=== PATIENT | female | born 2000 | race Caucasian/White ===

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

== ENCOUNTER 2018-06-04 13:35 | Emergency (ER) | payer MEDICAID ==
--- NOTE | 2018-06-04 14:30 | ED Physician Chart ---
ED Chief Complaint/HPI - Patient Information Date Seen:: 06/04/18 Time Seen:: 14:10 Chief Complaint:: trauma right thumb History of Present Illness:: Yesterday patient slammed her right thumb in a car door. Patient is right-hand dominant Allergies:: Allergies Allergy/AdvReac Type Severity Reaction Status Date / Time No Known Allergies Allergy Verified 07/26/16 19:00 Vitals:: Vital Signs - 8 hr 06/04/18 14:08 Temp 99.5 F HR 65 RR 18 BP 124/72 O2 Sat % 97 Historian:: Patient Review:: Nurse's Note Reviewed ED Review of Systems - Review of Systems General/Constitutional: No fever, No chills Skin: No rash Head: No headache Eyes: No loss of vision ENT: No earache Neck: No neck pain, No swelling Cardio Vascular: No chest pain, No palpitations Pulmonary: No SOB GI: No nausea, No vomiting, No diarrhea G/U: No dysuria Director Of Plant Operations: Other Musculoskeletal: No bone or joint pain, Other (see history and physical) Endocrine: No polyuria, No polydipsia Psychiatric: No prior psych history Hematopoietic: No bruising Allergic/Immuno: No urticaria Neurological: No syncope ED Past Medical History - Past Medical History Past Medical History: No significant medical hx Family History: None Social History: Non Smoker, Alcohol Surgical History: None Psychiatricy History: None Family Medical History - Family Member Father History Unknown: Yes Age: 55 Ethnicity: Living Status: Still Living Other Medical History: Healthy. ED Physical Exam - Physical Examination General/Constitutional: Awake, Well-developed, well-nourished Head: Atraumatic Eyes: Lids, conjuctiva normal Skin: Nl inspection ENMT: External ears, nose nl Neck: No nuchal rigidity Respiratory: Nl effort/Exclusion, Clear to Auscultation Cardio Vascular: RRR, No murmur, gallop, rubs GI: No tenderness/rebounding/guarding, No organomegaly, No hernia : No CVA tenderness Other Extremities comments:: Right thumb: Subungual hematoma of the proximal half of the nail; erythema of distal segment proximal to the nail Neuro/Psych: Alert/oriented ED Assessment - Assessment General Assessment: The redness proximal to the thumb nail is concerning for cellulitis so patient will be prescribed Keflex 500 mg 4 times a day for 1 week. She will be given 500 mg of Keflex in the emergency department before discharge. - Procedures Procedures:: Right thumb nail was gently cleansed with an alcohol swab. Electrocautery was then used to trephinate the nail over the center of the subungual hematoma; blood came forth at least partially evacuating the subungual hematoma. Pain was decreased after the trephination. ED Septic Shock - . Is Septic Shock (SBP<90, OR Lactate>4 mmol\L) present?: No - <6hrs of presentation: Vital Signs: Vital Signs - 8 hr 06/04/18 14:08 Temp 99.5 F HR 65 RR 18 BP 124/72 O2 Sat % 97 ED Reassessment (Disposition) - Reassessment Reassessment Condition:: Improved - Diagnosis Diagnosis:: Subungual hematoma right thumb - Aftercare/Follow up Instructions Aftercare/Follow-Up Instructions:: Refer to Discharge Instructions - Patient Disposition Discharge/Transfer:: Home Condition at Disposition:: Stable, Improved
== END 2018-06-04 15:00 | disposition home or self-care (01) ==
LOC: ER 13:35
DX: S60.111A Contusion of right thumb with damage to nail, initial encounter (principal); W22.8XXA Striking against or struck by other objects, initial encounter; Y93.89 Activity, other specified; Y92.89 Other specified places as the place of occurrence of the external cause; Y99.8 Other external cause status
CPT/HCPCS: Z7502; Z7610